=== PATIENT | male | born 1995 | race Two or more races ===

== ENCOUNTER 2021-09-18 11:33 | Emergency (ER) | payer OTHER ==
[~2021-09-18] VITALS: Ht 193 cm; Wt 106.8 kg
[2021-09-18] MEDS ORDERED: IBUPROFEN 600 MG TABLET PO ONE (13:15)
[2021-09-18] MEDS ORDERED: ACETAMINOPHEN/CODEINE 300-30 MG TABLET PO ONE (13:15)
[2021-09-18 14:00] VITALS: BP 124/81
== END 2021-09-18 14:30 | disposition home or self-care (01) ==
LOC: EMS 11:36
DX: S82.141A Displaced bicondylar fracture of right tibia, initial encounter for closed fracture (principal); S83.91XA Sprain of unspecified site of right knee, initial encounter; J45.909 Unspecified asthma, uncomplicated; X50.1XXA Overexertion from prolonged static or awkward postures, initial encounter; Y93.89 Activity, other specified; Y92.89 Other specified places as the place of occurrence of the external cause; Y99.0 Civilian activity done for income or pay
CPT/HCPCS: 29505; 99283